=== PATIENT | male | born 1995 | race Caucasian/White ===

== ENCOUNTER 2019-04-28 02:47 | Emergency (ER) | payer SELFPAY ==
[~2019-04-28] VITALS: Ht 175.3 cm; Wt 72.6 kg
[2019-04-28] MEDS ORDERED: LORAZEPAM 2 MG/1 ML VIAL IV ONE ×2 (03:15→04:15)
[2019-04-28] MEDS ORDERED: IV NORMAL SALINE 1000 ML BAG IV ONE ×2 (03:15→04:15)
[2019-04-28] MEDS ORDERED: ONDANSETRON 4 MG/2 ML VIAL IV ONE (03:15)
[2019-04-28] MEDS ORDERED: ONDANSETRON 4 MG/2 ML VIAL ONE (03:25)
[2019-04-28] MEDS ORDERED: LORAZEPAM 2 MG/1 ML VIAL ONE ×2 (03:30→04:13)
[2019-04-28 03:38] LABS: BASOPHILS % (AUTO) 0.4 % (0.0-2.0); EOSINOPHILS # (AUTO) 0.1 K/uL (0.0-0.7); EOSINOPHILS % (AUTO) 0.8 % (0.0-7.0); HEMATOCRIT 41.7 % (36.7-47.1); HEMOGLOBIN 14.6 g/dL (12.5-16.3); LYMPHOCYTES # (AUTO) 1.5 K/uL (20.0-40.0); LYMPHOCYTES % (AUTO) 15.3 % (20.5-51.5); MEAN CORPUSCULAR HEMOGLOBIN 33.1 uug (23.8-33.4); MEAN CORPUSCULAR HGB CONC 35 g/dL (32.5-36.3); MEAN CORPUSCULAR VOLUME 94.5 fL (73.0-96.2); MONOCYTES # (AUTO) 0.4 K/uL (2.0-10.0); MONOCYTES % (AUTO) 4.3 % (0.0-11.0); NEUTROPHILS # (AUTO) 7.8 K/uL (1.8-8.9); NEUTROPHILS % (AUTO) 79.2 % (38.5-71.5); PLATELET COUNT (AUTO) 233 K/uL (152-348); RED BLOOD CELL COUNT(AUTO) 4.41 MIL/uL (4.06-5.63); WHITE BLOOD COUNT (AUTO) 9.8 K/uL (3.6-10.2)
[2019-04-28 03:57] LABS: ALANINE AMINOTRANSFERASE 13 U/L (16-63); ALKALINE PHOSPHATASE 65 U/L (50-136); ASPARTATE AMINOTRANSFERASE 14 U/L (15-37); BILIRUBIN,DIRECT 0.1 mg/dL (0.0-0.2); BILIRUBIN,TOTAL 0.3 mg/dL (0.2-1.0); CARBON DIOXIDE 30 mmol/L (21-32); CHLORIDE 103 mmol/L (98-107); GLUCOSE 100 mg/dL (74-106); POTASSIUM 4.4 mmol/L (3.5-5.1); TOTAL PROTEIN, SERUM 7.7 g/dL (6.4-8.2); UREA NITROGEN, BLOOD 12 mg/dL (7-18)
[2019-04-28 04:05] LABS: ETHANOL < 3 MG/DL (0-0)
--- NOTE | 2019-04-28 04:42 | NUR ---
Patient discharged to home in stable conditon. Written and verbal after care instructions given. Patient verbalizes understanding of instructions. Pt ambulated out of ER with steady gait, no acute signs of distress, VSS, all belongings taken, IV site discontinued.
[2019-04-28 04:45] VITALS: BP 104/60
== END 2019-04-28 04:45 | disposition home or self-care (01) ==
LOC: ER 02:49
DX: F41.9 Anxiety disorder, unspecified (principal); R19.7 Diarrhea, unspecified; R11.2 Nausea with vomiting, unspecified
CPT/HCPCS: 36415; 80048; 80076; 85025; 93005; 96361; 96374; 96375; 96376; 99284; G0480; J2060 ×2; J2405; A4663; J7030

== ENCOUNTER 2019-04-28 23:48 | Emergency (ER) | payer SELFPAY ==
[~2019-04-28] VITALS: Ht 175.3 cm; Wt 68.0 kg
[2019-04-29] MEDS ORDERED: ONDANSETRON ODT 4 MG TAB.RAPDIS SL ONE (00:30)
[2019-04-29] MEDS ORDERED: ONDANSETRON ODT 4 MG TAB.RAPDIS ONE (01:02)
--- NOTE | 2019-04-29 01:17 | NUR ---
Patient discharged to home in stable conditon. Written and verbal after care instructions given. Patient verbalizes understanding of instructions. Pt walked out of ER in stable gait. No acute distres noted. Vital signs stable. Respirations even + unlabored.
[2019-04-29 01:19] VITALS: BP 122/62
== END 2019-04-29 01:19 | disposition home or self-care (01) ==
LOC: ER 23:49
DX: F41.9 Anxiety disorder, unspecified (principal); R11.10 Vomiting, unspecified; R06.00 Dyspnea, unspecified; R19.7 Diarrhea, unspecified; G47.00 Insomnia, unspecified
CPT/HCPCS: 71045; 93005; A4663; Q0162

== ENCOUNTER 2021-01-17 00:14 | Emergency (ER) | payer MEDICAID ==
[~2021-01-17] VITALS: Ht 175.3 cm; Wt 81.6 kg
--- NOTE | 2021-01-17 00:30 | NUR ---
Dr. Hughes at bedside for MSE.
[2021-01-17] MEDS ORDERED: KETOROLAC TROMETHAMINE 60 MG INJ IM ONE ×2 (00:45→01:12)
--- NOTE | 2021-01-17 01:20 | NUR ---
Mahad galvez in [facility] - 01/17/21 at 0148 by ROLANDA Ultrasound at bedside.
--- NOTE | 2021-01-17 02:25 | NUR ---
Ultrasound at bedside.
--- NOTE | 2021-01-17 02:39 | NUR ---
Patient discharged to home in stable condition. Written and verbal after care instructions given. Patient verbalizes understanding of instructions. Stressed follow up or return to ER for worsening s/s. Patient out of ER with steady gait, no acute signs of distress, VSS, all belongings taken.
[2021-01-17 02:40] VITALS: BP 124/70
== END 2021-01-17 02:40 | disposition home or self-care (01) ==
LOC: ER 00:18
DX: N50.811 Right testicular pain (principal); Z85.47 Personal history of malignant neoplasm of testis; Z90.79 Acquired absence of other genital organ(s)
CPT/HCPCS: 76870; 96372; 99283; J1885; A4663

== ENCOUNTER 2021-07-20 18:46 | Emergency (ER) | payer MEDICAID, OTHER ==
[~2021-07-20] VITALS: Ht 175.3 cm; Wt 77.1 kg
[2021-07-20] MEDS ORDERED: levETIRAcetam IV 500 MG in IV DEXTROSE 5% 100 ML IV ONE (19:00)
[2021-07-20] MEDS ORDERED: LORAZEPAM 2 MG/1 ML VIAL IV ONE (19:00)
[2021-07-20 19:25] LABS: MEAN CORPUSCULAR HEMOGLOBIN 32.3 uug (23.8-33.4); MEAN CORPUSCULAR VOLUME 94.1 fL (73.0-96.2); PLATELET COUNT (AUTO) 259 K/uL (152-348)
[2021-07-20 19:30] LABS: CREATININE 1.2 mg/dL (0.6-1.3)
[2021-07-20] MEDS ORDERED: levETIRAcetam 500 MG/5 ML VIAL IV ONE (19:38)
[2021-07-20] MEDS ORDERED: LORAZEPAM 2 MG/1 ML VIAL ONE (19:39)
[2021-07-20] MEDS ORDERED: LEVE500T20 PO (19:49)
[2021-07-20] MEDS ORDERED: LORA0.5T48 PO (19:49)
[2021-07-20] MEDS ORDERED: HYDR-4209 PO (19:51)
[2021-07-20] MEDS ORDERED: HYDROCODONE/APAP 5-325MG TABLET PO ONE (20:00)
[2021-07-20] MEDS ORDERED: HYDROCODONE/APAP 5-325MG TABLET ONE (20:02)
--- NOTE | 2021-07-20 20:08 | NUR ---
IV removed. Catheter intact and site benign. Pressure and 4x4 gauze applied to site. No bleeding noted.
--- NOTE | 2021-07-20 20:09 | NUR ---
Patient discharged to home in stable condition. Written and verbal after care instructions given. Patient verbalizes understanding of instructions. Stressed follow up or return to ER for worsening s/s.
[2021-07-20 20:10] VITALS: BP 128/68
== END 2021-07-20 20:11 | disposition home or self-care (01) ==
LOC: ER 18:46
DX: G40.909 Epilepsy, unspecified, not intractable, without status epilepticus (principal); S40.012A Contusion of left shoulder, initial encounter; W18.39XA Other fall on same level, initial encounter; Y92.039 Unspecified place in apartment as the place of occurrence of the external cause; Z85.47 Personal history of malignant neoplasm of testis; Z90.79 Acquired absence of other genital organ(s); F41.9 Anxiety disorder, unspecified; Z87.820 Personal history of traumatic brain injury
CPT/HCPCS: 36415; 73030; 80048; 85025; 96365; 96375; 99284; J1953; J2060; J7060; A4663

== ENCOUNTER 2021-12-10 21:20 | Emergency (ER) | payer OTHER ==
[~2021-12-10] VITALS: Ht 175.3 cm; Wt 70.3 kg
[~2021-12-10 21:20] MED LIST: HYDR-4209 PO; LEVE500T20 PO; LORA0.5T48 PO
[2021-12-10] MEDS ORDERED: LORA-259 PO (22:20)
[2021-12-10] MEDS ORDERED: HYDR-4209 PO (22:20)
[2021-12-10] MEDS ORDERED: HYDROCODONE/APAP 5-325MG TABLET ONE (22:26)
[2021-12-10] MEDS ORDERED: LORAZEPAM 1 MG TABLET ONE (22:26)
[2021-12-10] MEDS ORDERED: HYDROCODONE/APAP 5-325MG TABLET PO ONE (22:30)
[2021-12-10] MEDS ORDERED: LORAZEPAM 0.5 MG TABLET PO ONE (22:30)
[2021-12-10 22:32] VITALS: BP 111/76
== END 2021-12-10 22:33 | disposition home or self-care (01) ==
LOC: ER 21:20
DX: S16.1XXA Strain of muscle, fascia and tendon at neck level, initial encounter (principal); V49.9XXA Car occupant (driver) (passenger) injured in unspecified traffic accident, initial encounter; Y92.410 Unspecified street and highway as the place of occurrence of the external cause; Z85.47 Personal history of malignant neoplasm of testis
CPT/HCPCS: A4663

== ENCOUNTER 2021-12-13 21:36 | Emergency (ER) | payer OTHER ==
[~2021-12-13] VITALS: Ht 175.3 cm; Wt 70.3 kg
[~2021-12-13 21:36] MED LIST changes: +LORA-259 PO
--- NOTE | 2021-12-13 22:50 | NUR ---
DR. ARIAS AT BEDSIDE, MSE IN PROGRESS.
[2021-12-13] MEDS ORDERED: LORAZEPAM 0.5 MG TABLET ONE (23:08)
[2021-12-13] MEDS ORDERED: HYDROMORPHONE HCL 2 MG TABLET ONE (23:08)
[2021-12-13] MEDS ORDERED: HYDROMORPHONE HCL 2 MG TABLET PO ONE (23:15)
[2021-12-13] MEDS ORDERED: LORAZEPAM 0.5 MG TABLET PO ONE (23:15)
--- NOTE | 2021-12-13 23:23 | NUR ---
PT BEING TAKEN DOWN FOR CT.
--- NOTE | 2021-12-13 23:42 | NUR ---
PT RETURNED FROM CT.
[2021-12-14] MEDS ORDERED: CYCL10TA9 PO (00:13)
[2021-12-14] MEDS ORDERED: OXYC-133 PO (00:13)
[2021-12-14] MEDS ORDERED: HYDROMORPHONE HCL 2 MG TABLET PO ONE (00:15)
[2021-12-14] MEDS ORDERED: HYDROMORPHONE HCL 2 MG TABLET ONE (00:17)
--- NOTE | 2021-12-14 00:23 | NUR ---
Patient discharged to home in stable condition. Written and verbal after care instructions given. Patient verbalizes understanding of instructions. Stressed follow up or return to ER for worsening s/s. Steady gait, denies any pain/discomfort upon discharge. No n/v, dizzyness or HUSAIN. No changes in LOC. Picked up by family.
[2021-12-14 00:26] VITALS: BP 112/67
== END 2021-12-14 00:27 | disposition home or self-care (01) ==
LOC: ER 21:38
DX: M25.511 Pain in right shoulder (principal); M54.2 Cervicalgia; Z85.47 Personal history of malignant neoplasm of testis
CPT/HCPCS: 72125; 73200; A4663

== ENCOUNTER 2021-12-17 16:27 | Emergency (ER) | payer OTHER ==
[~2021-12-17] VITALS: Ht 175.3 cm; Wt 72.6 kg
[~2021-12-17 16:27] MED LIST changes: +CYCL10TA9 PO; +OXYC-133 PO
[2021-12-17] MEDS ORDERED: BENZONATATE 100 MG CAPSULE PO ONE (17:45)
[2021-12-17] MEDS ORDERED: PANTOPRAZOLE SODIUM 40 MG VIAL IV ONE (17:45)
[2021-12-17] MEDS ORDERED: KETOROLAC TROMETHAMINE 15 MG INJ IVP ONE (17:45)
[2021-12-17] MEDS ORDERED: ONDANSETRON 4 MG/2 ML VIAL IV ONE (17:45)
[2021-12-17] MEDS ORDERED: IV NS 1000 ML 1,000 ML IV ONE (17:45)
[2021-12-17] MEDS ORDERED: ONDANSETRON 4 MG/2 ML VIAL ONE ×2 (17:52)
[2021-12-17] MEDS ORDERED: PANTOPRAZOLE SODIUM 40 MG VIAL ONE (17:52)
[2021-12-17] MEDS ORDERED: BENZONATATE 100 MG CAPSULE ONE (17:53)
[2021-12-17] MEDS ORDERED: KETOROLAC TROMETHAMINE 30 MG INJ ONE (17:53)
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
--- NOTE | 2021-12-17 18:20 | NUR ---
covid swab sent to lab
[2021-12-17] MEDS ORDERED: OXYCODONE/APAP 5-325 MG TABLET PO ONE (19:45)
[2021-12-17] MEDS ORDERED: OXYCODONE/APAP 5-325 MG TABLET ONE (19:46)
--- NOTE | 2021-12-17 19:54 | NUR ---
Patient discharged to home in stable condition. Written and verbal after care instructions given. Patient verbalizes understanding of instructions. Stressed follow up or return to ER for worsening s/s. Patient ambulated fr the ER with steady gait. All belongings with patient.
[2021-12-17 20:22] VITALS: BP 123/71
== END 2021-12-17 19:54 | disposition home or self-care (01) ==
LOC: ER 16:29
DX: U07.1 COVID-19 (principal); J02.8 Acute pharyngitis due to other specified organisms; G89.29 Other chronic pain; M25.519 Pain in unspecified shoulder; F41.9 Anxiety disorder, unspecified; Z90.79 Acquired absence of other genital organ(s)
CPT/HCPCS: 71045; 87426; 96361; 96374; 96375; 99285; C9113; J1885; J2405 ×2; J7040; A4663

== ENCOUNTER 2022-04-11 19:37 | Emergency (ER) | payer OTHER ==
[~2022-04-11] VITALS: Ht 177.8 cm; Wt 72.6 kg
--- NOTE | 2022-04-11 20:20 | NUR ---
Dr. Hughes at bedside for MSE. pt bib ra for witnessed sz by pt's father.
[2022-04-11] MEDS ORDERED: ALPRAZOLAM 0.25 MG TABLET PO ONE (20:30)
[2022-04-11] MEDS ORDERED: ALPRAZOLAM 0.5 MG TABLET ONE (20:32)
[2022-04-11 20:42] LABS: HEMATOCRIT 43.1 % (36.7-47.1); PLATELET COUNT (AUTO) 226 K/uL (152-348)
[2022-04-11 20:56] LABS: ETHANOL < 3 MG/DL (0-0)
[2022-04-11 20:57] LABS: ALANINE AMINOTRANSFERASE 28 U/L (16-63); ALKALINE PHOSPHATASE 53 U/L (50-136); ASPARTATE AMINOTRANSFERASE 17 U/L (15-37); BILIRUBIN,DIRECT 0.1 mg/dL (0.0-0.2); BILIRUBIN,TOTAL 0.4 mg/dL (0.2-1.0); CARBON DIOXIDE 23 mmol/L (21-32); CHLORIDE 105 mmol/L (98-107); CREATININE 1.2 mg/dL (0.6-1.3); GLUCOSE 89 mg/dL (74-106); POTASSIUM 4.3 mmol/L (3.5-5.1); TOTAL PROTEIN, SERUM 7.5 g/dL (6.4-8.2); UREA NITROGEN, BLOOD 15 mg/dL (7-18)
[2022-04-11] MEDS ORDERED: KETOROLAC TROMETHAMINE 30 MG INJ ONE (21:09)
[2022-04-11] MEDS ORDERED: KETOROLAC TROMETHAMINE 30 MG INJ IVP ONE (21:15)
[2022-04-11 21:40] VITALS: BP 122/62
== END 2022-04-11 21:40 | disposition home or self-care (01) ==
LOC: ER 19:37
DX: R56.9 Unspecified convulsions (principal); F13.239 Sedative, hypnotic or anxiolytic dependence with withdrawal, unspecified; F41.9 Anxiety disorder, unspecified; Z85.47 Personal history of malignant neoplasm of testis; Z90.79 Acquired absence of other genital organ(s)
CPT/HCPCS: 80076; 80048; 85025; 36415; 93005; 99284; 96374; 80320; J1885; A4663; G0480

== ENCOUNTER 2022-06-18 14:20 | Emergency (ER) | payer OTHER ==
[~2022-06-18] VITALS: Ht 177.8 cm; Wt 73.9 kg
[2022-06-18] MEDS ORDERED: ALPR1TAB7 PO (15:08)
[2022-06-18] MEDS ORDERED: FAMOTIDINE 20 MG TABLET PO ONE (16:30)
[2022-06-18] MEDS ORDERED: ACETAMINOPHEN 325 MG TABLET PO ONE (16:30)
[2022-06-18] MEDS ORDERED: MAG HYDROX/AL HYDROX/SIMETH 30 ML LIQUID UDC PO ONE (16:30)
[2022-06-18] MEDS ORDERED: IV LACTATED RINGERS SOLUTION 1,000 ML BAG IV ONE (16:30)
[2022-06-18] MEDS ORDERED: ONDANSETRON 4 MG/2 ML VIAL IV ONE ×2 (16:30→17:45)
[2022-06-18] MEDS ORDERED: ACETAMINOPHEN 325 MG TABLET ONE (16:36)
[2022-06-18] MEDS ORDERED: ONDANSETRON 4 MG/2 ML VIAL ONE ×2 (16:36→17:37)
[2022-06-18] MEDS ORDERED: FAMOTIDINE 20 MG TABLET ONE (16:36)
[2022-06-18] MEDS ORDERED: SWABABLE VALVE TRANSFER SET EA MC ONE (16:37)
[2022-06-18] MEDS ORDERED: IV NORMAL SALINE 250 ML IV ONE (16:37)
[2022-06-18] MEDS ORDERED: IOHEXOL 300MG/ML 100 ML INFUS..BTL ONE (16:37)
[2022-06-18] MEDS ORDERED: MAG HYDROX/AL HYDROX/SIMETH 30 ML LIQUID UDC ONE (16:37)
[2022-06-18 17:09] LABS: CREATININE 0.9 mg/dL (0.6-1.3); POTASSIUM 3.7 mmol/L (3.5-5.1)
[2022-06-18 17:15] LABS: BILIRUBIN,DIRECT 0.3 mg/dL (0.0-0.2); BILIRUBIN,TOTAL 1.1 mg/dL (0.2-1.0); HEMATOCRIT 43.7 % (36.7-47.1); MEAN CORPUSCULAR HEMOGLOBIN 33.5 uug (23.8-33.4); MEAN CORPUSCULAR VOLUME 97.4 fL (73.0-96.2); PLATELET COUNT (AUTO) 264 K/uL (152-348); TOTAL PROTEIN, SERUM 8.1 g/dL (6.4-8.2)
[2022-06-18 17:29] LABS: *BILIRUBIN,URIN NEGATIVE (NEGATIVE); *BLOOD, URINE NEGATIVE (NEGATIVE); *CLARITY,URINE CLEAR (CLEAR); *COLOR,URINE YELLOW (YELLOW); *KETONES,URINE 1+ (NEGATIVE); LEUKOCYTE ESTERASE ,URINE NEGATIVE (NEGATIVE); NITRITE, URINE NEGATIVE (NEGATIVE); UGLUCOSE NEGATIVE (NEGATIVE)
[2022-06-18 17:42] LABS: *AMPHETAMINE, URINE NEGATIVE (NEGATIVE); *CANNABINOID, URINE POSITIVE (NEGATIVE); *COCCAINE, URINE NEGATIVE (NEGATIVE); *OPIATE, URINE POSITIVE (NEGATIVE); *PHENCYCLIDINE SCREEN,URINE NEGATIVE (NEGATIVE)
--- NOTE | 2022-06-18 18:35 | NUR ---
Patient pulled out midline by himself without waiting for nurse. Pressure applied to site.
[2022-06-18] MEDS ORDERED: ONDA4TAB5 PO (18:49)
[2022-06-18 19:13] VITALS: BP 128/75
--- NOTE | 2022-06-27 08:01 | NUR ---
Note for 06/18/22. IV lactated ringers end time: 1830
== END 2022-06-18 18:55 | disposition home or self-care (01) ==
LOC: ER 14:22
DX: R10.84 Generalized abdominal pain (principal); R11.2 Nausea with vomiting, unspecified; Z85.47 Personal history of malignant neoplasm of testis; Z90.79 Acquired absence of other genital organ(s); Z86.69 Personal history of other diseases of the nervous system and sense organs
CPT/HCPCS: 99285; 74177; 96374; 71045; 96361; 80076; 80048; 81003; 83690; 85025; 36415; 80307; J2405 ×2; Q9967; J7120; A4663

== ENCOUNTER 2022-06-27 14:18 | Emergency (ER) | payer OTHER ==
[~2022-06-27] VITALS: Ht 177.8 cm; Wt 74.8 kg
[~2022-06-27 14:18] MED LIST changes: +ALPR1TAB7 PO; +ONDA4TAB5 PO
--- NOTE | 2022-06-27 14:30 | NUR ---
1st contact with patient: Patient is AOx4. He is asking for IV narcotics and IV Zofran 8mg, notified.
[2022-06-27] MEDS ORDERED: ONDANSETRON 4 MG/2 ML VIAL ONE (14:45)
[2022-06-27 14:49] LABS: HEMATOCRIT 42.4 % (36.7-47.1); MEAN CORPUSCULAR HEMOGLOBIN 32.7 uug (23.8-33.4); MEAN CORPUSCULAR VOLUME 96.9 fL (73.0-96.2); PLATELET COUNT (AUTO) 263 K/uL (152-348)
[2022-06-27 14:56] LABS: POTASSIUM 4.1 mmol/L (3.5-5.1)
[2022-06-27 15:05] LABS: BILIRUBIN,DIRECT 0.2 mg/dL (0.0-0.2); BILIRUBIN,TOTAL 0.4 mg/dL (0.2-1.0); TOTAL PROTEIN, SERUM 7.6 g/dL (6.4-8.2)
[2022-06-27] MEDS: IV NORMAL SALINE 1000 ML BAG IV ONE ×2 (15:11→15:30)
[2022-06-27] MEDS: ONDANSETRON 4 MG/2 ML VIAL IV ONE ×2 (15:11→15:31)
--- NOTE | 2022-06-27 15:11 | NUR ---
* Unable to give IV fluids and IV meds 2/2 difficult IV line insertion, pending PICC nurse's arrival for mid-line catheter insertion. Nursing tool room supervisor Heladio will call ER back for PICC nurse's ETA. MD was updated accordingly.
--- NOTE | 2022-06-27 15:21 | NUR ---
"Can you try the IV line one more time?" per patient's verbalization.
--- NOTE | 2022-06-27 15:32 | NUR ---
Peripheral IV line insertion was successful, MD notified. IV fluids bolus started & IV Zofran given.
--- NOTE | 2022-06-27 15:52 | NUR ---
Patient is resting comfortably on gurney while using his personal electronic device, NAD. No actual vomiting seen since his arrival to ER.
[2022-06-27] MEDS ORDERED: KETOROLAC TROMETHAMINE 15 MG INJ ONE (16:13)
[2022-06-27] MEDS ORDERED: KETOROLAC TROMETHAMINE 15 MG INJ IVP ONE (16:15)
--- NOTE | 2022-06-27 16:28 | NUR ---
"I'm really here for the cockroach problem in my apartment." per patient's verbalization.
--- NOTE | 2022-06-27 16:30 | NUR ---
"I can come back for my discharge papers. Can I go home now?" per patient' s verbaliztion. is aware.
--- NOTE | 2022-06-27 16:31 | NUR ---
Patient discharged to home in stable condition with brisk steady gait. Verbal after care instructions given. Patient verbalized understanding and compliance of instructions. Stressed follow up with primary doctor or return to ER for worsening s/s. Patient left ER before written discharge papers can be printed.
== END 2022-06-27 16:33 | disposition home or self-care (01) ==
LOC: ER 14:18
DX: R11.2 Nausea with vomiting, unspecified (principal); R10.9 Unspecified abdominal pain; Z85.47 Personal history of malignant neoplasm of testis; Z86.69 Personal history of other diseases of the nervous system and sense organs; Z90.79 Acquired absence of other genital organ(s)
CPT/HCPCS: 99284; 96374; 96375; 80076; 80048; 83690; 85025; 36415; J1885; J2405; J7040; A4663

== ENCOUNTER 2022-07-04 11:56 | Emergency (ER) | payer OTHER ==
[~2022-07-04] VITALS: Ht 175.3 cm; Wt 72.6 kg
[2022-07-04] MEDS ORDERED: IV NORMAL SALINE 1000 ML BAG IV ONE (12:15)
[2022-07-04] MEDS ORDERED: levETIRAcetam IV 1,000 MG in IV DEXTROSE 5% 100 ML IV ONE (12:15)
[2022-07-04] MEDS ORDERED: LORAZEPAM 2 MG/1 ML VIAL IV ONE (12:15)
[2022-07-04 12:24] LABS: HEMATOCRIT 41.8 % (36.7-47.1); MEAN CORPUSCULAR HEMOGLOBIN 33.7 uug (23.8-33.4); MEAN CORPUSCULAR VOLUME 98.6 fL (73.0-96.2); PLATELET COUNT (AUTO) 233 K/uL (152-348)
[2022-07-04 12:30] LABS: CREATININE 1.3 mg/dL (0.6-1.3); POTASSIUM 3.9 mmol/L (3.5-5.1)
[2022-07-04] MEDS ORDERED: LORAZEPAM 2 MG/1 ML VIAL ONE (12:45)
[2022-07-04] MEDS ORDERED: KETOROLAC TROMETHAMINE 15 MG INJ IVP ONE (12:45)
[2022-07-04] MEDS ORDERED: KETOROLAC TROMETHAMINE 15 MG INJ ONE (13:03)
[2022-07-04] MEDS ORDERED: ACETAMINOPHEN ES 500 MG TABLET PO ONE (14:00)
[2022-07-04] MEDS ORDERED: ALPR1TAB7 PO (14:03)
[2022-07-04] MEDS ORDERED: LEVE500T9 PO (14:03)
--- NOTE | 2022-07-04 14:10 | NUR ---
IV removed. Catheter intact and site benign. Pressure and 4x4 gauze applied to site. No bleeding noted. No seizures seen while in ER. Patient said someone is driving him home. Patient did not pee yet, MD notified. Patient discharged to home in stable condition. Written and verbal after care instructions given. Patient verbalized understanding and compliance of instructions. Stressed follow up with primary doctor and neurologist or return to ER for worsening s/s.
== END 2022-07-04 14:11 | disposition home or self-care (01) ==
LOC: ER 11:56
DX: G40.909 Epilepsy, unspecified, not intractable, without status epilepticus (principal); F13.239 Sedative, hypnotic or anxiolytic dependence with withdrawal, unspecified; F41.9 Anxiety disorder, unspecified; Z90.79 Acquired absence of other genital organ(s)
CPT/HCPCS: 99284; 96365; 96375; 80048; 83735; 85025; 36415; 93005; J1885; J1953; J2060; J7040; A4663

== ENCOUNTER 2023-04-24 19:49 | Emergency (ER) | payer MEDICAID, OTHER ==
[~2023-04-24] VITALS: Ht 182.9 cm; Wt 74.8 kg
[~2023-04-24 19:49] MED LIST changes: +LEVE500T9 PO
[2023-04-24] MEDS ORDERED: KETOROLAC TROMETHAMINE 15 MG INJ IM ONE (20:00)
[2023-04-24] MEDS ORDERED: KETOROLAC TROMETHAMINE 15 MG INJ ONE (20:02)
[2023-04-24] MEDS ORDERED: MELO7.5T12 PO (20:44)
[2023-04-24] MEDS ORDERED: OXYC-128 PO (20:44)
[2023-04-24] MEDS ORDERED: HYDROCODONE/APAP 5-325MG TABLET PO ONE (21:15)
[2023-04-24] MEDS ORDERED: HYDROCODONE/APAP 5-325MG TABLET ONE (21:17)
[2023-04-25 00:34] VITALS: BP 128/77; TEMP 97.8; O2SAT 99
== END 2023-04-24 21:30 | disposition home or self-care (01) ==
LOC: ER 19:56
DX: S92.331A Displaced fracture of third metatarsal bone, right foot, initial encounter for closed fracture (principal); Z79.899 Other long term (current) drug therapy; W22.01XA Walked into wall, initial encounter; Y93.89 Activity, other specified; Y92.89 Other specified places as the place of occurrence of the external cause; Y99.8 Other external cause status
CPT/HCPCS: 99284; 29515; 73610; 73630; 96372; J1885; A4663

== ENCOUNTER → 2023-08-15 | Emergency (ER) | payer MEDICAID ==
[~2023-08-15] VITALS: Ht 175.3 cm; Wt 74.8 kg
[~2023-08-15] MED LIST changes: +CEFTRIAXONE 500 MG VIAL IM ONE; +CEFTRIAXONE 500 MG VIAL ONE; +DOLU50TA PO; +DOXY100C5 PO; +EMTR1TAB6 PO; +MELO7.5T12 PO; +OXYC-128 PO
[2023-08-15 13:02] VITALS: O2SAT 99
[2023-08-15 14:29] LABS: HIV-1 p24 ANTIGEN NON REACTIVE (NONREACTIVE); HIV-1/2 ANTIBODY NON REACTIVE (NONREACTIVE)
[2023-08-16 12:11] LABS: HEPATITIS B CORE AB, TOTAL Negative (Negative); HEPATITIS B SURFACE AB, QUAL Reactive (.); HEPATITIS C VIRUS ANTIBODY Non Reactive (Non Reactive)
== END | disposition home or self-care (01) ==
LOC: ER 12:52
DX: Z20.2 Contact with and (suspected) exposure to infections with a predominantly sexual mode of transmission (principal); J40 Bronchitis, not specified as acute or chronic; F41.9 Anxiety disorder, unspecified; Z79.899 Other long term (current) drug therapy; Z98.890 Other specified postprocedural states
CPT/HCPCS: 86592; 86704; 86706; 86803; 87806; A4606; A4663; J0696

== ENCOUNTER 2024-03-09 03:43 | Emergency (ER) | payer MEDICAID ==
[~2024-03-09] VITALS: Ht 175.3 cm; Wt 70.3 kg
[~2024-03-09 03:43] MED LIST changes: -CEFTRIAXONE 500 MG VIAL IM ONE; -CEFTRIAXONE 500 MG VIAL ONE
[2024-03-09] MEDS ORDERED: hydrOXYzine HCL 25 MG TABLET ONE ×2 (04:01→04:49)
[2024-03-09] MEDS: hydrOXYzine HCL 25 MG TABLET PO ONE ×2 (04:23→04:59)
[2024-03-09] MEDS ORDERED: NAPROXEN 500 MG TABLET ONE (04:24)
[2024-03-09] MEDS: NAPROXEN 500 MG TABLET PO ONE (04:30)
[2024-03-09 05:08] VITALS: BP 109/61; TEMP 97.8; O2SAT 98
== END 2024-03-09 05:06 | disposition home or self-care (01) ==
LOC: ER 03:47
DX: S09.8XXA Other specified injuries of head, initial encounter (principal); J40 Bronchitis, not specified as acute or chronic; R07.89 Other chest pain; Z98.890 Other specified postprocedural states; Z79.899 Other long term (current) drug therapy; Z79.891 Long term (current) use of opiate analgesic; Y04.8XXA Assault by other bodily force, initial encounter; Y93.89 Activity, other specified; Y92.89 Other specified places as the place of occurrence of the external cause; Y99.8 Other external cause status
CPT/HCPCS: 70450; 71045; 74018; 93005; A4606; A4663

== ENCOUNTER 2025-06-25 23:47 | Emergency (ER) | payer MEDICAID ==
[~2025-06-25] VITALS: Ht 170.2 cm; Wt 72.6 kg
[~2025-06-25 23:47] MED LIST changes: +CYCL10TA24 PO; -CYCL10TA9 PO
[2025-06-25 23:49] VITALS: BP 123/82; O2SAT 97
== END 2025-06-26 | disposition home or self-care (01) ==
LOC: ER 23:49
DX: F10.129 Alcohol abuse with intoxication, unspecified (principal); F19.10 Other psychoactive substance abuse, uncomplicated; F41.9 Anxiety disorder, unspecified; Z76.5 Malingerer [conscious simulation]; Z79.624 Long term (current) use of inhibitors of nucleotide synthesis; Z79.899 Other long term (current) drug therapy; Z88.7 Allergy status to serum and vaccine; Z90.79 Acquired absence of other genital organ(s); Z53.29 Procedure and treatment not carried out because of patient's decision for other reasons; Y90.9 Presence of alcohol in blood, level not specified
CPT/HCPCS: A4606; A4663